=== PATIENT | female | born 1995 | race Two or more races ===

== ENCOUNTER → 2018-08-08 | Outpatient (CLI) | payer OTHER ==
[2016-10-02 00:10] VITALS: BP 126/68
[~2018-08-08] MED LIST: IOHEXOL 240 MG/ML 50ML VIAL. IV ONE; IOHEXOL 240 MG/ML 50ML VIAL. ONE; IOHEXOL 300 MG/ML 75 ML VIAL. IV ONE
--- NOTE | 2018-08-08 16:05 | RAD ---
PQRS Compliance Statement: One or more of the following individualized dose reduction techniques were utilized for this examination: 1. Automated exposure control 2. Adjustment of the mA and/or kV according to patient size 3. Use of iterative reconstruction technique CT ABD PELV W/ORAL IV CONTRAST Clinical Indication: BLOODY STOOL TIMES 6 WEEKS, LEFT SIDE PAIN TIMES 2 DAYS. Comparison: None. Technique: Helical CT imaging of the abdomen and pelvis is performed after 75 cc of Omnipaque 300 IV contrast. Oral contrast also given. Findings: Lung bases clear. Cardiac size normal. Liver, gallbladder, spleen, pancreas, adrenal glands, abdominal aorta, and kidneys are normal. Stomach unremarkable. No dilated small bowel. Oral contrast reaches the cecum. The appendix is normal. There is stool and fluid in the ascending colon. There is wall thickening of the proximal transverse colon, coronal image 12. There are mesenteric lymph nodes, a few are mildly enlarged, for example image 37. Urinary bladder is normal. Anteverted uterus. Ovaries symmetric. Moderate pelvic free fluid may be physiologic. No acute bone abnormality. IMPRESSION: 1. There is wall thickening of the proximal transverse colon suggestive of mild colitis, probably infectious or inflammatory bowel disease. 2. Mildly enlarged mesenteric lymph nodes are probably reactive. 3. Moderate pelvic free fluid may be physiologic. Electronically signed by: Dre Brandon MD (08/08/2018 4:02 PM) [id number]
== END | disposition home or self-care (01) ==
LOC: CT 14:20
PROVIDERS: ATTEND Family Medicine
DX: K63.89 Other specified diseases of intestine (principal); R59.0 Localized enlarged lymph nodes
CPT/HCPCS: 74177; Q9966; Q9967